=== PATIENT | male | born 1970 | race Caucasian/White ===

== ENCOUNTER 2018-12-02 23:01 | Emergency (ER) | payer BC, OTHER ==
[2018-12-03] MEDS: CEFTRIAXONE 1 GM INJ IM (02:41)
== END 2018-12-03 03:10 | disposition home or self-care (01) ==
LOC: FTE 23:01
DX: L03.115 Cellulitis of right lower limb (principal); F17.210 Nicotine dependence, cigarettes, uncomplicated
CPT/HCPCS: 96372; 99284-25